=== PATIENT | female | born 1925 | race Caucasian/White ===

== ENCOUNTER → 2016-10-12 | Day surgery (SDC) | payer OTHER, MEDICARE ==
[~2016-10-12] VITALS: Ht 157.5 cm; Wt 68.9 kg
[~2016-10-12] MED LIST: ASPIRIN EC81 M1 PO; HYDROCHLOROTHIA25 M1 PO; LIPITOR; LOSARTAN; METOPROLOL
--- NOTE | 2016-10-12 16:13 | Operative Report ---
Operative/Inv Procedure Report Surgery Date: 10/12/16 Name of Procedure: Cystoscopy, hydrodistention. Pre-Operative Diagnosis: Micro-Hematuria Post-Operative Diagnosis: Same Estimated Blood Loss: scant Surgeon/Final Inspector Paper: PANCHO PETERSON MD Anesthesia: moderate sedation Complications: None Operative/Procedure Note Note: The patient was taken to the operative room and placed on the OR table in supine position. Timeout was performed in order to confirm the patient's identity, procedure, anesthesia, antibiotics, as well as any other pertinent information. After adequate anesthesia, and antibiotics, the patient was then placed lithotomy stirrups draped and prepped in the usual surgical fashion. A 22 Romansh cystoscope sheath with a 30 angle lens was inserted into the urethra and advanced into the bladder without difficulty. The bladder was noted to have the findings as discussed above. The bladder was then hydrodistended 2 with the irrigation fluid at 40 cm above the symphysis pubis. No evidence of tumor, increased petechiae, nor Hunner's ulceration was noted. Both ureteral orifices had clear reflux in their orthotopic position. No terminal bleed with drainage. Bladder capacity was normal. The bladder was then drained and the cystoscope was removed under direct visualization. The patient tolerated procedure well and was taken to recovery room in satisfactory condition. Findings: Normal bladder, without tumor or stone. Urethral carbuncle visible. Discharge Disposition: Same Day Admissions CC: PANCHO PETERSON MD
== END ==
LOC: STS 02:49
DX: R31.29 Other microscopic hematuria (principal); I10 Essential (primary) hypertension; N28.9 Disorder of kidney and ureter, unspecified; R06.00 Dyspnea, unspecified; F17.200 Nicotine dependence, unspecified, uncomplicated